=== PATIENT | male | born 1945 | race Caucasian/White ===

== ENCOUNTER 2018-05-28 06:01 | Observation (INO) ==
[~2018-05-28 06:01] MED LIST: CEFAZOLIN 1000MG 1,000 MG/7.5 ML SYR IV SCH; LR 15ML/HR IV SCH
--- NOTE | 2018-05-28 06:58 | Anesthesiology Consultation ---
Date of Service May 28, 2018 Assessment & Plan (1) Encounter for pre-operative examination: Chart Review Chart Review: Acceptable Risk for Surgery and Patient NOT seen in Pre Admission Testing Consults Requested none ASA ASA4 Proposed Anesthesia Anesthesia Type: MAC NPO Date Last Intake of Fluids: 05/27/18 Time Last Intake of Fluids: 20:30 Date Last Intake of Solids: 05/27/18 Time Last Intake of Solids: 20:30 History Surgery Operation Date: 05/28/18 08:00 Proposed Procedures p ICD Biventricular Implant with Anesthesia - Beba Chavez DO
[2018-05-28] MEDS ORDERED: ALBUT/IPRATROP 3MG/0.5MG NEB 3 ML VIAL NEB STA ×2 (07:03→11:57)
[2018-05-28] MEDS ORDERED: ATROPINE SULFATE 0.1 MG/ML 10ML SYR IV PRN (07:04)
[2018-05-28] MEDS ORDERED: ePHEDrine sulfate 50 MG/ML AMP IV PRN (07:04)
[2018-05-28] MEDS ORDERED: PROPOFOL IV EMULSION 10 MG/ML 100 ML VIAL IV ONE (07:13)
[2018-05-28] MEDS ORDERED: CEFAZOLIN 3000MG/72.5 ML BAG IV ONE (07:18)
[2018-05-28] MEDS ORDERED: LIDOCAINE HCL 1% 20 ML VIAL ONE (07:22)
[2018-05-28] MEDS ORDERED: BUPIVACAINE 0.25% 30 ML VIAL ONE (07:22)
[2018-05-28] MEDS ORDERED: BACITRACIN INJ 50,000 UNIT VIAL ONE (07:23)
--- NOTE | 2018-05-28 07:37 | History & Physical Bridge Note ---
Date of Service May 28, 2018 History & Physical Bridge Note I have examined the patient, reviewed the History & Physical and in the interval since the performance of the History & Physical I have noted the following changes of clinical significance: no changes noted
[2018-05-28] MEDS ORDERED: MIDAZOLAM HCL 1 MG/ML 2ML VIAL ONE (07:42)
[2018-05-28] MEDS ORDERED: fentaNYL citrate 100 MCG/2 ML VIAL ONE (07:42)
[2018-05-28] MEDS ORDERED: ONDANSETRON INJ 2 MG/ML 2 ML VIAL ONE (08:48)
[2018-05-28] MEDS ORDERED: LIDOCAINE HCL 2% 2 ML VIAL/AMP(20MG/ML) INFIL ONE (08:48)
[2018-05-28] MEDS ORDERED: PHENYLEPHRINE 100MCG/ML 5ML SYR ONE (08:48)
[2018-05-28] MEDS ORDERED: SUCCINYLCHOLINE CHLORIDE 20 MG/ML 10 ML VIAL ONE (08:48)
[2018-05-28] MEDS ORDERED: PROPOFOL IV EMULSION 10 MG/ML 20 ML VIAL IV ONE (08:48)
[2018-05-28] MEDS ORDERED: DEXAMETHASONE SOD INJ 4 MG/ML VIAL ONE (08:48)
[2018-05-28] MEDS ORDERED: ROCURONIUM BROMIDE 10 MG/ML 5 ML VIAL ONE (08:48)
[2018-05-28] MEDS ORDERED: ePHEDrine sulfate 50 MG/ML SYR ONE (08:48)
[2018-05-28] MEDS ORDERED: NEOSTIGMINE METHYLSULFATE 5 MG/5 ML SYR ONE (08:48)
[2018-05-28] MEDS ORDERED: PHENYLEPHRINE HCL 10 MG/ML VIAL ONE (08:48)
[2018-05-28] MEDS ORDERED: LARYING-O-JET KIT (LTA) ONE (08:48)
[2018-05-28] MEDS ORDERED: GLYCOPYRROLATE 0.2 MG/ML VIAL ONE (08:48)
[2018-05-28] MEDS ORDERED: ACETAMINOPHEN 325 MG TAB PO PRN (10:00)
--- NOTE | 2018-05-28 10:12 | Operative Report ---
Post Operative Report Pre & Post Diagnosis NICM, LBBB, chronic systolic HF-NYHA class II Operation Date: 05/28/18 08:00 <No data on this case meets the specified criteria> Procedure Operation Date: 05/28/18 08:00 Actual Procedures p ICD Insertion Single or Dual(Not Applicable) - DO dana Castellano Lead LV (No Priopr Implant)(Not Applicable) - DO dana Castellano Venogram, Unilateral(Left) - Beba Chavez DO Surgeon Beba Chavez, Carpet Floor Layer Apprentice none Estimated Blood Loss 20 Findings Consistent with Post-Op Diagnosis Specimens None Description of Procedure see official report I attest to the content of the Intraoperative Record and any orders documented therein. Any exceptions are noted below.
[2018-05-28] MEDS ORDERED: FLUTICASONE SALMETEROL INH SCH (10:15)
--- NOTE | 2018-05-28 10:17 | Discharge Summary ---
Date of Service May 28, 2018 Admission HPI Pt admitted for elective BIV ICD due to NICM, LBBB and chronic systolic HF. Pt underwent procedure without any complications; monitored overnight and discharged home. Admission Exam Per Admitting Provider aaox3, NAD NC/AT, EOMI Supple No JVD Nrl S1/S2, No murmur CTA b/l no w/r/r soft nt/nd no LE edema b/l skin intact no focal deficits Principal Diagnosis Principal Diagnosis NICM s/p BiV ICD Discharge Exam aaox3, NAD NC/AT, EOMI Supple No JVD Nrl S1/S2, No murmur CTA b/l no w/r/r soft nt/nd no LE edema b/l skin intact no focal deficits left pectoral incision intact, no hematoma mild ecchymosis Discharge Data Allergies Allergy/AdvReac Type Severity Reaction Status Date / Time Sulfa (Sulfonamide Allergy Verified 05/28/18 07:26 Antibiotics) Procedures Performed Operation Date: 05/28/18 08:00 Actual Procedures p ICD Insertion Single or Dual(Not Applicable) - Beba Chavez DO s Lead LV (No Priopr Implant)(Not Applicable) - Beba Chavez DO s Venogram, Unilateral(Left) - Beba Chavez DO Ordered Studies 05/28/18 07:45 EP Lab Images for PACS ONCE Hospital Course (1) NICM (nonischemic cardiomyopathy): (2) LBBB (left bundle branch block): (3) Chronic systolic congestive heart failure, NYHA class 3: Total Time Total Time Spent Total Time Spent (In Minutes): 30 Total Time Includes: Examination of the Patient, Discharge Planning, Medication Reconciliation and Other Discharge Plan Discharge Items Patient Disposition: Home - Self-Care Reason For Visit: BIV ICD Discharge Diagnosis: NICM s/p BiV ICD Condition: Good Discharge Goals: Improve function Activity: As commented below Activity Comment: do not lift the left elbow over the left shoulder for 1 month Lifting: No more than 10 pounds Lifting Comment: do not lift more than 10 pounds with left arm for 2 weeks Bathing: Keep incision dry Driving/Machine Use: Resume 1 day after discharge Non-emergency contact: Software Configuration Engineer Call non-emergency contact if: you have any medication questions Follow-up/Referrals: PCP,NO [Primary Care Provider] - Diet: Heart Healthy Addtl Provider Instructions: wound check next week in [place] office as scheduled Prescriptions: Continue furosemide [Lasix] 40 mg Tablet 40 mg PO DAILY RF: 0 atorvastatin 40 mg Tablet 40 mg PO DAILY RF: 0 lisinopril 20 mg Tablet 20 mg PO DAILY RF: 0 amlodipine 5 mg Tablet 5 mg PO DAILY RF: 0 omeprazole 40 mg Capsule,Delayed Release(Dr/Ec) 40 mg PO DAILY RF: 0 spironolactone 25 mg Tablet 25 mg PO DAILY RF: 0 simvastatin 40 mg Tablet 40 mg PO HS RF: 0 lisinopril-hydrochlorothiazide 20-25 mg Tablet 1 tab PO DAILY RF: 0 albuterol sulfate [ProAir HFA] 90 mcg/actuation Hfa Aerosol Inhaler 2 puff INHALATION BID PRN (Reason: Cough) RF: 0 tiotropium bromide [Spiriva with HandiHaler] 18 mcg Capsule, W/Inhalation Device 1 cap DAILY RF: 0 fluticasone-salmeterol [Advair HFA] 230-21 mcg/actuation Hfa Aerosol Inhaler 2 puff INHALATION Q12H RF: 0 Stand-Alone Forms: [facility] Discharge Orders: Discharge Order (Routine); Ordered 05/29/18 Ordered By: Beba Chavez Admission Data Admit Date/Time: 05/28/18 08:53 Attending Provider: Beba Chavez Admit Provider: Beba Chavez Primary Care Provider: PCP,NO Service: Telemetry
--- NOTE | 2018-05-28 12:22 | Anesthesiology Progress Note ---
Date of Service May 28, 2018 Anesthesia Post Procedure Vital Signs Vital Signs: Temp Pulse Resp BP Pulse Ox 05/28/18 11:20 67 20 95 05/28/18 10:45 22 91/57 L 91 05/28/18 10:35 24 91/56 L 91 05/28/18 10:25 24 100/61 92 05/28/18 10:15 24 117/63 94 05/28/18 10:06 36.6 C 64 16 135/65 96 05/28/18 07:16 36.4 C L 60 22 128/77 93 05/28/18 07:10 56 L 16 93 Notes Mental Status: alert / awake / arousable Patient Amnestic to Procedure: Yes Nausea / Vomiting: adequately controlled Pain: adequately controlled Airway Patency, RR, SpO2: stable & adequate BP & HR: stable & adequate Hydration State: stable & adequate Anesthetic Complications: no major complications apparent and Pt Satisfied with anesthetic care
[2018-05-28] MEDS ORDERED: ALBUTEROL HFA 8 GM INHALER INH PRN (13:00)
[2018-05-28] MEDS: ACETAMINOPHEN W/CODEINE #3 1 TAB PO PRN (15:36)
[2018-05-28] MEDS ORDERED: SIMVASTATIN 40 MG TAB PO SCH (21:00)
[2018-05-28] MEDS: CARVEDILOL 3.125 MG TAB PO SCH (21:21)
[2018-05-28] MEDS: FLUTICASONE/SALMETEROL (ADVAIR) 500/50 INH 14 PUFF INH SCH (22:16)
[2018-05-29] MEDS: ACETAMINOPHEN W/CODEINE #3 1 TAB PO PRN (02:15)
--- NOTE | 2018-05-29 08:07 | Anesthesiology Progress Note ---
Date of Service May 29, 2018 Anesthesia Post Procedure Vital Signs Vital Signs: Temp Pulse Pulse Resp BP BP Pulse Ox 05/29/18 04:59 61 18 94 05/29/18 03:33 36.4 C L 57 L 18 126/75 94 05/29/18 01:51 65 20 91 05/29/18 00:00 71 05/28/18 23:37 36.7 C 65 16 119/66 92 05/28/18 22:53 65 16 95 05/28/18 21:18 36.5 C 65 20 114/73 94 05/28/18 19:52 36.4 C L 56 L 18 109/69 91 05/28/18 15:24 36.3 C L 70 18 124/67 95 05/28/18 14:56 74 05/28/18 13:30 36.3 C L 69 16 131/62 92 05/28/18 12:55 68 05/28/18 12:45 68 16 112/69 93 05/28/18 12:15 36.5 C 65 16 103/64 92 05/28/18 12:00 70 22 103/65 93 05/28/18 11:45 70 22 111/62 93 05/28/18 11:30 70 22 98/59 L 97 05/28/18 11:20 67 20 95 05/28/18 11:15 70 22 92/66 L 91 05/28/18 11:00 70 22 89/56 L 91 05/28/18 10:45 70 22 93/55 L 91 05/28/18 10:35 70 24 91/56 L 91 05/28/18 10:25 70 24 100/61 92 05/28/18 10:15 24 117/63 94 05/28/18 10:06 36.6 C 64 16 135/65 96 Pain Intensity Left Shoulder: Pain Intensity: 10 Notes Mental Status: alert / awake / arousable and participated in evaluation Patient Amnestic to Procedure: Yes Nausea / Vomiting: adequately controlled Pain: adequately controlled Airway Patency, RR, SpO2: stable & adequate BP & HR: stable & adequate Hydration State: stable & adequate Anesthetic Complications: no major complications apparent and Pt Satisfied with anesthetic care
--- NOTE | 2018-05-29 08:20 | XRay Report ---
TWO VIEW CHEST CLINICAL HISTORY: Status post pacemaker placement. FINDINGS: PA and lateral chest radiographs are obtained. No prior studies are available for compariso n at the time of dictation. A 3-lead cardiac AICD has been placed. Leads project over the right atri al appendage, the right ventricle, and the coronary sinus. The heart is enlarged and there is atheros clerotic calcification of the thoracic aorta. The pulmonary vasculature is noncongested. Nonspecific interstitial thickening is likely chronic. There is bibasilar scarring/atelectasis. No airspace conso lidation is seen typical for pneumonia and there is no pleural effusion. There is no pneumothorax. Th e skeletal structures are osteopenic. The bony thorax appears intact. IMPRESSION: 1. A 3-lead cardiac AICD has been placed as detailed above. No pneumothorax is identified post proced ure. 2. Cardiomegaly. There is no radiographic evidence of congestive failure. 3. No airspace consolidation or pleural effusion is identified. Electronically signed by: Peng Solorzano M.D. 05/29/2018 8:19 AM
[2018-05-29] MEDS: FLUTICASONE/SALMETEROL (ADVAIR) 500/50 INH 14 PUFF INH SCH (08:28)
[2018-05-29] MEDS: CARVEDILOL 3.125 MG TAB PO SCH (08:29)
[2018-05-29 08:42] VITALS: PULSE 58; TEMP 97.3; O2SAT 95
[2018-05-29] MEDS ORDERED: FUROSEMIDE 40 MG TAB PO SCH (09:00)
[2018-05-29] MEDS ORDERED: LISINOPRIL 20 MG TAB PO SCH (09:00)
[2018-05-29] MEDS ORDERED: TIOTROPIUM BROMIDE 5 PUFF/90 MCG INH INH SCH (09:00)
[2018-05-29] MEDS ORDERED: LISINOPRIL/HCTZ 20/25MG 1 TAB PO SCH (09:00)
[2018-05-29] MEDS ORDERED: PANTOprazole 40 MG TAB PO SCH (09:00)
[2018-05-29] MEDS ORDERED: AMLODIPINE BESYLATE 5 MG TAB PO SCH (09:00)
[2018-05-29] MEDS ORDERED: SPIRONOLACTONE 25 MG TAB PO SCH (09:00)
[2018-05-29] MEDS ORDERED: ATORVASTATIN 40 MG TAB PO SCH (09:00)
[2018-05-29 09:45] VITALS: BP 114/73
--- NOTE | 2018-05-31 00:28 | Operative Report ---
DATE OF OPERATION: 05/28/2018 PREOPERATIVE DIAGNOSES: Nonischemic cardiomyopathy, left bundle-branch block, chronic systolic heart failure, [place] Heart Association class III. POSTOPERATIVE DIAGNOSES: Nonischemic cardiomyopathy, left bundle-branch block, chronic systolic heart failure, [place] Heart Association class III. PROCEDURE: Biventricular rate responsive implantable cardiac defibrillator under fluoroscopic guidance along with a peripheral and coronary sinus venograms. SURGEON: Beba Chavez DO PROCESS PLANNER: None. ANESTHESIA: Monitored anesthetic care administered under my supervision, a total of 2 mg of Versed, 100 mcg of fentanyl, 100 mg of propofol, 8 mg of Decadron and 4 mg of Zofran. INTRAVENOUS CONTRAST: 25 mL. INTRAVENOUS FLUIDS: 300 mL. ESTIMATED BLOOD LOSS: 20 mL. URINE OUTPUT: Not applicable. SPECIMENS: None. FINDINGS: See below. DRAINS: None. INDICATIONS: This is a 72-year-old gentleman with past medical history for nonischemic cardiomyopathy, in 2015, it was 50%, in the fall of 2017, it was 20% and remains well on most recent echocardiogram, coronary artery disease, nonobstructive disease by cardiac catheterization in 2013, hypertension, hyperlipidemia, chronic emphysema, on continuous positive airway pressure, hypothyroidism, gastroesophageal reflux disease and possible lone episode of atrial fibrillation as it was reported when he had a cardiac catheterization in 06/2013. Due to his nonischemic cardiomyopathy, left bundle-branch block and chronic systolic heart failure, [place] Heart Association class III, he was recommended a biventricular implantable cardioverter defibrillator. CONSENT: Consent was obtained prior to the patient on an Electrophysiology Lab. The patient was informed of risks, benefits and alternatives of the procedure. Risks include but not limited to sudden cardiac , cardiac arrhythmias, cerebrovascular accident, myocardial infarction, injury to the blood vessels, chamber of the heart, lung, bleeding and infection. The patient understood these risks and agreed to the procedure as planned. Informed consent was obtained. DESCRIPTION OF PROCEDURE: The patient was brought in to the Electrophysiology Lab in a fasting state. He was connected to continuous cardiac monitoring. A timeout was performed to ensure the patient's identity and procedure correctly. The patient was prepped and draped over the left infraclavicular space in normal surgical standard fashion. Moderate conscious sedation was given throughout the procedure for the patient's comfort level. [place] precautions were maintained throughout the procedure. A 10 mL of 1% lidocaine, benzocaine mix were given in left deltopectoral groove. Incision was made in left deltopectoral groove. Blunt dissection was performed down to identify cephalic vein. Cephalic vein was identified and isolated using 0 silk ties. The vein was nicked with an 11 blade. Then, a peripheral venogram using 10 mL of I.V. contrast diluted in 10 mL of saline was performed. Then, venous access was obtained through an axillary stick without any problems. I then went back to the cephalic vein. I nicked it with an 11 blade and a guidewire was inserted without any resistance. An 8-[place] sheath was inserted. The guidewire and dilator removed. A second guidewire was inserted through the 8-[place] sheath to allow for retained venous access. The sheath was removed, flushed and a 9.5-[place] sheath was then inserted over one of the guidewires. The guidewire and dilator removed. The right ventricular defibrillator lead was then advanced into right ventricle and positioned in ventricular apex under fluoroscopic guidance. There was adequate pacing and sensing thresholds and no diaphragmatic stimulation with high output pacing. The 9.5-[place] sheath was peeled away and lead was fixated to pectoralis muscle using 0 silk ties. An 8-[place] sheath was then inserted over the retained guidewire in the cephalic vein without any resistance. Guidewire was removed. The guidewire and dilator removed. The right atrial pacing lead was then advanced into right atrium and positioned in atrial appendage under fluoroscopic guidance. There was adequate pacing and sensing thresholds and no diaphragmatic stimulation with high output pacing. The sheath was peeled away and lead was fixated to pectoralis muscle using 0 silk ties. Then, a 9.5-[place] sheath was inserted over the guidewire in the axillary vein. The guidewire and dilator removed. The coronary sinus Attain Command MPX outer sheath from [employer] was then advanced into the right atrium over a guidewire. The guidewire and dilator were removed. Then, a diagnostic EP catheter was advanced through the Attain Command outer sheath and the coronary sinus was cannulated. The sheath was then advanced over the EP catheter. Then, a coronary sinus venogram was performed which identified a nice posterolateral branch. This branch was accessed through a Whisper wire and then the lead was tracked over the Whisper wire. We had adequate pacing and sensing thresholds and no diaphragmatic stimulation with high output pacing. The Attain Command sheath was then slit under fluoroscopic guidance followed then by the outer 9.5-[place] sheath was peeled away. The lead was fixated to pectoralis muscle using 0 silk suture. A defibrillator pocket was then created using blunt dissection over the pectoralis muscle within the pectoral fascia. There was some backbleeding at the cephalic sites so a pursestring was performed using a 2-[address] needle. The pocket was then flushed with copious amounts of bacitracin saline wash and inspected for hemostasis. The pulse generator was then attached to the leads, making sure that the pins were in appropriate position, passed, set screws and screws were all tightened. Pulse generator was then placed in the pocket, making sure the leads were lying flat beneath the device. Incision was then closed in a 3-layer fashion with 2-0 Vicryl interrupted suture followed by 3-0 Vicryl interrupted suture followed by4-0 Monocryl running stitch and Dermabond was applied. EQUIPMENT: 1. Pulse generator is a [employer] Quad FILER METAL PATTERNS-D SureScan, [id number], serial # [id number]. 2. Right atrial lead Medtronic 5076-52 cm, serial # [id number]. 3. Right ventricular lead Medtronic 6935-62 cm, serial # [id number]. 4. Left ventricular lead, Medtronic 4598-88 cm, serial #[id number]. INTRAOPERATIVE TESTIN. Right atrial lead: P-wave 3 millivolts, impedance 600 ohms, threshold 0.9 volts at 1.6 milliamps. 2. Right ventricular lead: R-waves 25.1 millivolts, impedance 749 ohms, threshold 0.5 volts at 0.7 milliamps. 3. Left ventricular lead programmed LV2-LV3, impedance 600 ohms, threshold 0.3 volts at 0.6 milliamps. FINAL MEASUREMENTS THROUGH THE DEVICE: 1. Right atrial lead: P waves 1.9 millivolts, impedance 513 ohms, threshold 1 volt at 0.4 milliseconds. 2. Right ventricular lead: R waves 20 millivolts, impedance 551 ohms, threshold 0.5 volts at 0.4 milliseconds. 3. Left ventricular lead: Programmed LV2-LV3, impedance 551 ohms, threshold 1 volt at 0.4 milliseconds. FINAL PARAMETERS: DDDR 60/130, right atrial and right ventricular amplitude 3.5 volts, pulse width 0.4 milliseconds, sensitivity 0.3 millivolts. Left ventricular amplitude 4 volts, pulse width 0.4 milliseconds. VT detection of 167 for 20 intervals and VF zone at 200 beats per minute for 330/40 intervals. IMPRESSION: Successful implantation of a dual rate responsive biventricular implantable cardiac defibrillator under fluoroscopic guidance along with peripheral and coronary sinus venogram secondary to nonischemic cardiomyopathy, left bundle-branch block and chronic systolic heart failure, [place] Heart Association class III. PLAN: Monitor the patient overnight, a 12-lead ECG, chest x-ray, remove the pressure dressing tomorrow, not allowed to lift left elbow or left shoulder for 1 month. He cannot lift more than 10 pounds with the left arm for 2 weeks. He can shower in 2 days, let water run over the incision, do not scrub it. He should follow up in our [place] office for device and wound check in 1 week's time. I attest to the content of the Intraoperative Record and any orders documented therein. Any exception s are noted below.
== END 2018-05-29 11:38 | disposition home or self-care (01) ==
LOC: 2S 06:01 → ASU 06:01
PROC: EPB.ICD (2018-05-28 08:00)